=== PATIENT | female | born 1960 | race Caucasian/White ===

== ENCOUNTER → 2018-02-10 | Outpatient (CLI) | payer OTHER ==
[~2018-02-10] MED LIST: ACET500T68 PO; ACYC800T99 PO; ALBU8.5H IH; ALBU8.5H12 IH; BENZ100C26 PO; BENZ100C4 PO; BUDE90AE2 IH; CHOL200074 PO; CLAR-1 PO; CYC10 PO; CYCL10TA29 PO; FERR325C2 PO; FERR325T24 PO; GLUC1TAB25 PO; GOLYTE PO; IBU800 PO; ISOM1CAP2 PO; ISOM1TAB PO; MAGN250T34 PO; MAGN400T36 PO; MID PO; MON10 PO; MONT10TA4 PO; OMEP40CA48 PO; PANT20TA27 PO; PANT40TA65 PO; PER PO; SUCR1TAB85 PO
--- NOTE | 2018-02-10 14:21 | RADIOLOGY IMAGING REPORT ---
FACILITY: [facility] PATIENT NAME: Palmira Sky : 1960 MR: [id number] V: [id number] EXAM DATE: ORDERING PHYSICIAN: LIZETH MURILLO TECHNOLOGIST: Location: [facility] [place] Patient: Palmira Sky : 1960 Visit/Account:[id number] Date of Sevice: 02/10/2018 DEXA Scan Clinical history: Postmenopausal estrogen deficiency. Comparison: None available. LUMBAR SPINE: The bone mineral density (BMD) measured from L1-L4 correlates with a Z-score -0.7 and a T-score of -1 .6 which is osteopenia as defined by the World Health Organization. The corresponding risk of fractu re in the lumbar spine is 3-4 times increased compared with a young adult reference population. HIP: Bone mineral density (BMD) measured in the Left total hip region correlates with a Z-score -2.7 and a T-score of by 3.4 which is osteoporosis as defined by the World Health Organization. The correspond ing risk of fracture in the hip is a to 12 times increased compared with a young adult [facility]. T score left femoral neck -3.3 Bone mineral density (BMD) measured in the Femoral Neck region measures 0.582 g/cm2. Impression: 1. Lumbar spine: Osteopenia. 2. Left Hip: Osteoporosis. 3. Femoral Neck: Bone Mineral Density is 0.582 g/cm2 The next DEXA scan of this patient should include the following sites: L1-L4 and the left hip. FRAX? WHO Fracture Risk Assessment Tool link: <http://www.shef.ac.uk/FRAX/tool.jsp?locationValue=9> PLEASE NOTE: 1) The World Health Organization defines low BMD as follows: T-score Normal > -1 Osteopenia < -1 and > -2.5 Osteoporosis < -2.5 without fractures Established osteoporosis < -2.5 with fractures 2) In general, you may wish to consider: Diagnosis Treatment Follow-up DEXA Normal BMD Prevention 2-3 years Osteopenia Prevention/therapy 1-2 years Osteoporosis Therapy Yearly 3) Fracture risk estimated from the T-score is more accurate for vertebral fractures (often spontane ous) than for hip fractures. Report Dictated By: Mary Wilder MD at 02/10/2018 2:15 PM Report E-Signed By: Mary Wilder MD at 02/10/2018 2:16 PM WSN:DORENE
--- NOTE | 2018-02-11 11:46 | RADIOLOGY IMAGING REPORT ---
[place] [facility] [place]: DAREN DELATORRE : [id number] MR: [id number] V: [id number] EXAM DATE: ORDERING PHYSICIAN: LIZETH MURILLO TECHNOLOGIST: Bella Ellis PROCEDURE:BILATERAL DIGITAL SCREENING MAMMOGRAM WITH CAD ASSISTED INTERPRETATION & 3D TOMOSYNTHESIS COMPARISON:Prior mammograms 07/19/10, 11/12/04. INDICATIONS:Breast cancer screening FINDINGS: Mildly heterogeneous fibroglandular tissue is seen throughout the breasts. The parenchymal pattern has remained stable allowing for difference in mammographic technique & patient positioning. There is no evidence of malignant appearing mass, malignant appearing calcifications or other secondary sign of malignancy in either breast. DIAGNOSTIC CATEGORY 1--NEGATIVE. RECOMMENDATIONS: ROUTINE MAMMOGRAM AND CLINICAL EVALUATION. IMPRESSION: BIRADS 1: Negative No significant abnormality is seen. Dictated by: Mary Wilder M.D. on 02/10/2018 at 15:53 Transcribed by: KRISTI on 02/10/2018 at 15:54 Approved by: Mary Wilder M.D. on 02/11/2018 at 11:45 [facility]
== END ==
LOC: MAMO 00:31
PROVIDERS: ATTEND Emergency Medicine
DX: Z13.820 Encounter for screening for osteoporosis (principal); Z12.31 Encounter for screening mammogram for malignant neoplasm of breast; M85.88 Other specified disorders of bone density and structure, other site; M81.0 Age-related osteoporosis without current pathological fracture; Z78.0 Asymptomatic menopausal state
CPT/HCPCS: 77063; 77067; 77080

== ENCOUNTER → 2018-02-24 | Outpatient (CLI) | payer OTHER | LOC: LAB 12:01 | PROVIDERS: ATTEND Emergency Medicine | DX: M81.0 Age-related osteoporosis without current pathological fracture (principal) | CPT/HCPCS: 36415; 82306; 82310; 82607; 83970 ==

== ENCOUNTER 2018-11-22 20:51 | Emergency (ER) | payer OTHER ==
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
[2018-11-22 21:30] VITALS: BP 120/79
== END 2018-11-22 21:41 | disposition home or self-care (01) ==
LOC: ER 20:59
DX: S61.452A Open bite of left hand, initial encounter (principal); S60.512A Abrasion of left hand, initial encounter; Y04.1XXA Assault by human bite, initial encounter
CPT/HCPCS: 36415; 86703; 86706; 86803; 99282

== ENCOUNTER → 2019-03-12 | Outpatient (REF) ==
[2019-03-12 12:36] LABS: LDL CHOLESTEROL 110 mg/dl
== END ==
DX: Z02.9 Encounter for administrative examinations, unspecified (principal)